=== PATIENT | male | born 1980 | race Two or more races ===

== ENCOUNTER 2020-10-26 09:38 | Emergency (ER) | payer BC ==
[~2020-10-26] VITALS: Ht 175.3 cm; Wt 117.9 kg
[2020-10-26 09:46] VITALS: BP 134/93
== END 2020-10-26 11:39 | disposition home or self-care (01) ==
LOC: ER 09:38
DX: J45.998 Other asthma (principal); Z20.822 Contact with and (suspected) exposure to COVID-19
CPT/HCPCS: 36415; 71045; 87426

== ENCOUNTER 2021-12-31 18:37 | Emergency (ER) | payer BC ==
[~2021-12-31] VITALS: Ht 175.3 cm; Wt 124.7 kg
[2021-12-31 18:53] VITALS: BP 130/89
[2021-12-31 19:21] LABS: Basophils # (auto) 0.2 10 ^3/uL (0-0.2); Basophils % (auto) 1.2 % (0.0-2.0); Eosinophils # (auto) 0.4 10 ^3/uL (0-0.8); Eosinophils % (auto) 3.1 % (0.0-7.0); Hematocrit 45.3 % (41.0-53.0); Hemoglobin 15.6 g/dL (13.5-17.5); Lymphocytes # (auto) 3.3 10 ^3/uL (0.4-5.4); Lymphocytes % (auto) 25.7 % (10.0-50.0); Mean Corpuscular Hemoglobin 29.9 pg (28.0-32.0); Mean Corpuscular Hgb Conc. 34.3 g/dL (32.0-36.0); Mean Corpuscular Volume 87.1 fL (80.0-100.0); Monocytes # (auto) 0.7 10 ^3/uL (0-1.3); Monocytes % (auto) 5.8 % (0.0-12.0); Neutrophils # (auto) 8.2 10 ^3/uL (1.6-8.6); Neutrophils % (auto) 64.2 % (37.0-80.0); Nucleated Red Blood Cells % 0.2 %; Red Cell Distribution Width 13.8 % (11.8-14.3); White Blood Cell 12.8 10^3/uL (4.4-10.8)
[2021-12-31 19:39] LABS: Alanine Aminotransferase 74 U/L (16-61); Albumin 3.8 g/dL (3.4-5.0); Anion Gap 6 (5-15); Aspartate Aminotransferase 32 U/L (15-37); BUN/Creatinine Ratio 10.4; Blood Urea Nitrogen 10 mg/dL (7-18); Calcium 8.8 mg/dL (8.5-10.1); Carbon Dioxide 28 mmol/L (21-32); Chloride 106 mmol/L (98-107); GFR African American 110 mL/min; GFR Non-African American 91 mL/min; Glucose 98 mg/dL (74-106); Magnesium 2.4 mg/dL (1.6-2.6); Potassium 4.1 mmol/L (3.5-5.1); Sodium 140 mmol/L (136-145)
[2021-12-31 19:44] LABS: Alkaline Phosphatase 75 U/L (45-117); Bilirubin, Total 0.4 mg/dL (0.2-1.0); Total Protein 7.6 g/dL (6.4-8.2)
[2022-01-01 00:23] LABS: Cholesterol 201 mg/dL (< 200); HDL Cholesterol 29 mg/dL (40-59); LDL Cholesterol 132 mg/dL (< 100); Triglycerides 392 mg/dL (< 150)
== END 2021-12-31 23:37 | disposition home or self-care (01) ==
LOC: ER 18:40
DX: R07.89 Other chest pain (principal)
CPT/HCPCS: 36415; 80053; 80061; 83735; 84484; 85025; 93005